=== PATIENT | female | born 1950 | race Hispanic/Latino ===

== ENCOUNTER 2017-06-15 00:01 | Emergency (ER) | payer MEDICARE, MEDICAID, OTHER ==
[2017-06-15 00:13] VITALS: BMI 29.9
--- NOTE | 2017-06-15 00:27 | ED PDOC ---
Arrival/HPI - General Chief Complaint: Weakness/Neurological Deficit Time Seen by Provider: 06/15/17 00:21 Historian: Patient - History of Present Illness Narrative History of Present Illness (Text): 06/15/17 00:26 Madina Kapoor is a 66 year old female, whose past medical history includes hypertension, who presents to the Emergency department complaining of generalized weakness. Patient states she was in a hot room at work yesterday and began feeling weak and near syncopal with palpitations while driving home from work. Patient states today she still feels weak with associated generalized malaise and headache. Patient denies any fever, chills, chest pain, shortness of breath, vomiting, diarrhea, urinary symptoms, back pain, neck pain , dizziness, or any other complaints. PMD: Dr. Alvse Symptom Onset: Gradual Symptom Course: Unchanged Activities at Onset: Light Context: Home Past Medical History - Provider Review Nursing Documentation Reviewed: Yes - Infectious Disease Hx of Infectious Diseases: None - Tetanus Immunization Tetanus Immunization: Unknown - Cardiac Hx Hypertension: Yes - Musculoskeletal/Rheumatological Hx Falls: No - Gastrointestinal Hx Gastrointestinal Disorders: Yes (colitis) Hx Diverticulitis: Yes - Psychiatric Hx Psychophysiologic Disorder: No Hx Anxiety: No Hx Bipolar Disorder: No Hx Depression: No Hx Emotional Abuse: No Hx Hallucinations: No Hx Panic Disorder: No Hx Post Traumatic Stress Disorder: No Hx Psychosis: No Hx Physical Abuse: No Hx Schizophrenia: No Hx Sexual Abuse: No Hx Substance Use: No - Surgical History Hx Hysterectomy: Yes - Anesthesia Hx Anesthesia: No Hx Anesthesia Reactions: No Hx Malignant Hyperthermia: No - Suicidal Assessment Feels Threatened In Home Enviroment: No Family/Social History - Physician Review Nursing Documentation Reviewed: Yes Family/Social History: Unknown Family HX Smoking Status: Never Smoked Hx Alcohol Use: (FORMER) Hx Substance Use: No Hx Substance Use Treatment: No Allergies/Home Meds Allergies/Adverse Reactions: Allergies Sulfa (Sulfonamide Antibiotics) Allergy (Verified 11/30/15 10:49) ANAPHYLAXIS Home Medications: Home Meds Medication Instructions Recorded Confirmed Amlodipine Besylate 5 mg PO DAILY 02/16/12 06/15/17 Review of Systems - Physician Review All systems were reviewed & negative as marked: Yes - Review of Systems Constitutional: Other (+weakness). absent: Fevers Eyes: Normal ENT: Normal Respiratory: Normal. absent: SOB, Cough Cardiovascular: Palpitations, Other (+near-syncopal). absent: Chest Pain Gastrointestinal: Normal. absent: Abdominal Pain, Nausea, Vomiting Genitourinary Female: Normal. absent: Dysuria, Frequency, Hematuria, Urine Output Changes Musculoskeletal: Normal. absent: Back Pain, Neck Pain Skin: Normal. absent: Rash Neurological: Headache. absent: Dizziness Endocrine: Normal Hemo/Lymphatic: Normal Psychiatric: Normal Physical Exam Vital Signs Reviewed: Yes Vital Signs Temp Pulse Resp BP Pulse Ox 06/15/17 00:20 98.2 F 60 16 147/78 96 Temperature: Afebrile Blood Pressure: Normal Pulse: Regular Respiratory Rate: Normal Appearance: Positive for: Well-Appearing, Non-Toxic, Comfortable Pain Distress: None Mental Status: Positive for: Alert and Oriented X 3 - Systems Exam Head: Present: Atraumatic, Normocephalic Pupils: Present: PERRL Extroacular Muscles: Present: EOMI Conjunctiva: Present: Normal Mouth: Present: Moist Mucous Membranes Neck: Present: Normal Range of Motion. No: Meningeal Signs, MIDLINE TENDERNESS , Paraspinal Tenderness Respiratory/Chest: Present: Clear to Auscultation, Good Air Exchange. No: Respiratory Distress, Accessory Muscle Use Cardiovascular: Present: Regular Rate and Rhythm, Normal S1, S2. No: Murmurs Abdomen: Present: Normal Bowel Sounds. No: Tenderness, Distention, Peritoneal Signs Back: Present: Normal Inspection Upper Extremity: Present: Normal Inspection. No: Cyanosis, Edema Lower Extremity: Present: Normal Inspection. No: Edema Neurological: Present: GCS=15, CN II-XII Intact, Speech Normal, Motor Func Grossly Intact, Normal Sensory Function, Normal Cerebellar Funct, Memory Normal Skin: Present: Warm, Dry, Normal Color. No: Rashes Psychiatric: Present: Alert, Oriented x 3, Normal Insight, Normal Concentration Medical Decision Making ED Course and Treatment: 06/15/17 00:26 Impression: 66 year old female complaining of generalized weakness, near-syncope, palpitations, and headache. Plan: -- CT Head w/o contrast -- EKG -- Chest X-ray -- Labs, cardiac enzymes -- Reassess and disposition Prior Visits: Notes and results from previous visits were reviewed. On 11/15/2016, pt was seen in the Emergency department for abdominal cramping, nausea, and diarrhea. Pt was admitted to the hospital for further evaluation. Progress Notes: Reviewed EKG, NSR at [address] bpm[address] Non-specific ST/T wave changes. 06/15/17 01:58 Reviewed radiology, Chest X-ray shows no acute processes. CT Head shows: Brain: Mild atrophy. No intracranial hemorrhage. No mass. No definite edema. Ventricles: No hydrocephalus. Bones/joints: No acute fracture. Soft tissues: Unremarkable. Vasculature: Mild atherosclerotic disease of intracranial arteries. Sinuses: Few sphenoid retention cysts. Mastoid air cells: No mastoid effusion. Orbits: Unremarkable as visualized. IMPRESSION: 1. No acute intracranial abnormality. Acute infarction may be CT occult within first 24 hours. If a focal deficit persists, consider followup CT or MRI for further evaluation. 2. Incidental/non-acute findings are described above. 06/15/17 02:[address] Bill Alves, who is aware and agrees with plan. Accepts pt in to his service. Pt will go to Telemetry observation for near- syncope and palpitations. Requests Dr. Suresh on consult. Pt is no acute distress. Discussed results and hospital observation plan with pt , who is aware and verbalizes understanding. - Lab Interpretations Lab Results: 06/15/17 01:10 06/15/17 00:45 Lab Results 06/15/17 01:10: WBC 7.6 D, RBC 4.47, Hgb 13.6, Hct 39.6, MCV 88.6, MCH 30.4, MCHC 34.3, RDW 13.1, Plt Count 239, MPV 9.8 06/15/17 00:45: Sodium 140, Potassium 4.0, Chloride 106, Carbon Dioxide 25, Anion Gap 13, BUN 24 H, Creatinine 0.8, Est GFR ( Amer) > 60, Est GFR ( Non-Af Amer) > 60, Random Glucose 97, Calcium 9.1, Total Bilirubin 0.4, AST 18, ALT 23, Alkaline Phosphatase 62, Lactate Dehydrogenase 437, Total Creatine Kinase 116, Troponin I < 0.01, Total Protein 6.4, Albumin 3.8, Globulin 2.6, Albumin/Globulin Ratio 1.5 06/15/17 00:45: PT 10.1, INR 0.94, APTT 27.0 I have reviewed the lab results: Yes - RAD Interpretation Radiology Orders: 06/15/17 00:27 HEAD W/O CONTRAST [CT] Stat 06/15/17 00:28 CHEST PORTABLE [RAD] Stat Resident Care Associate: ED Physician, Radiologist - EKG Interpretation Interpreted by ED Physician: Yes Type: 12 lead EKG - Scribe Statement The provider has reviewed the documentation as recorded by the Scribe Alanis Adler Provider Scribe Attestation: All medical record entries made by the Scribe were at my direction and personally dictated by me. I have reviewed the chart and agree that the record accurately reflects my personal performance of the history, physical exam, medical decision making, and the department course for this patient. I have also personally directed, reviewed, and agree with the discharge instructions and disposition. Disposition/Present on Arrival - Present on Arrival Any Indicators Present on Arrival: No History of DVT/PE: No History of Uncontrolled Diabetes: No Urinary Catheter: No History of Decub. Ulcer: No History Surgical Site Infection Following: None - Disposition Have Diagnosis and Disposition been Completed?: Yes Diagnosis: Near syncope, Palpitations Disposition: HOSPITALIZED Disposition Time: 02:03 Patient Plan: Observation Patient Problems: Current Active Problems Problem Status Onset Near syncope Acute Palpitations Acute Condition: STABLE
[2017-06-15 01:04] LABS: HEMATOCRIT 39.6 % (36.0-48.0); MEAN CELL VOLUME 88.6 fl (80.0-105.0); MEAN CORPUSCULAR HEMOGLOBIN 30.4 pg (25.0-35.0); MEAN CORPUSCULAR HGB CONC 34.3 g/dl (31.0-37.0); MEAN PLATELET VOLUME 9.8 fl (7.0-11.0); RED CELL DISTRIBUTION WIDTH 13.1 % (11.5-14.5); WHITE BLOOD COUNT 7.6 10^3/ul (4.5-11.0)
[2017-06-15 01:13] LABS: ALB/GLOB RATIO 1.5 (1.1-1.8); ALKALINE PHOSPHATASE 62 U/L (38-126); ALT/SGPT 23 U/L (7-56); AST/SGOT 18 U/L (14-36); BILIRUBIN,TOTAL 0.4 mg/dL (0.2-1.3); BLOOD UREA NITROGEN 24 mg/dL (7-21); CALCIUM 9.1 mg/dL (8.4-10.5); CARBON DIOXIDE 25 mmol/L (21-33); GFR AFRICAN-AMERICAN > 60; GLUCOSE,RANDOM 97 mg/dL (70-110); TOTAL PROTEIN 6.4 g/dL (5.8-8.3)
[2017-06-15 01:14] LABS: INR 0.94 (0.93-1.08)
[2017-06-15 01:16] LABS: CHLORIDE 106 mmol/L (98-107); SODIUM 140 mmol/L (132-148)
[2017-06-15 01:25] LABS: TROPONIN I < 0.01 ng/mL
--- NOTE | 2017-06-15 01:57 | CT ---
EXAM: CT Head Without Intravenous Contrast CLINICAL HISTORY: 66 years old, female; Signs and symptoms; Syncope and collapse; Additional info: Near syncope TECHNIQUE: Axial computed tomography images of the head/brain without intravenous contrast. All CT scans at this facility use one or more dose reduction techniques, viz.: automated exposure control; ma/kV adjustment per patient size (including targeted exams where dose is matched to indication; i.e. head); or iterative reconstruction technique. COMPARISON: No relevant prior studies available. FINDINGS: Brain: Mild atrophy. No intracranial hemorrhage. No mass. No definite edema. Ventricles: No hydrocephalus. Bones/joints: No acute fracture. Soft tissues: Unremarkable. Vasculature: Mild atherosclerotic disease of intracranial arteries. Sinuses: Few sphenoid retention cysts. Mastoid air cells: No mastoid effusion. Orbits: Unremarkable as visualized. IMPRESSION: 1. No acute intracranial abnormality. Acute infarction may be CT occult within first 24 hours. If a focal deficit persists, consider followup CT or MRI for further evaluation. 2. Incidental/non-acute findings are described above.
[2017-06-15 06:45] VITALS: O2SAT 95
[2017-06-15 08:12] VITALS: RESP 18
--- NOTE | 2017-06-15 08:44 | RAD ---
HISTORY: palpitations COMPARISON: 11/30/2015. FINDINGS: LUNGS: The lungs are well inflated and clear. PLEURA: No significant pleural effusion identified, no pneumothorax apparent. CARDIOVASCULAR: Normal. OSSEOUS STRUCTURES: No significant abnormalities. VISUALIZED UPPER ABDOMEN: Normal. OTHER FINDINGS: None. IMPRESSION: No active pulmonary disease.
--- NOTE | 2017-06-15 09:36 | CARD ---
APPROVED REPORT EKG Measurement Heart [id number] <Conclusion> Suspect arm lead reversal. Normal sinus rhythm
[2017-06-15 11:35] VITALS: BP 152/79; PULSE 58
--- NOTE | 2017-06-15 11:36 | CON ---
DATE: 06/15/2017 INDICATIONS: Near syncope, weakness, palpitations. 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 She felt diaphoretic and despite drinking water, her symptoms worsened. She took a cab home. She continued to feel lightheaded and weak. She came to the emergency room and was admitted. She received IV fluids and this morning she feels much better. There was no chest pain. There was palpitation. There was no orthopnea, PND, syncope, fall, injury, edema, claudication, fever, chills, cough, sputum production, hemoptysis, abdominal pain, nausea, vomiting, diarrhea, constipation, or melena. PAST MEDICAL HISTORY: Notable for hypertension. There is no history of rheumatic fever, myocardial infarction, angina, congestive heart failure, diabetes, stroke, TIA, or gout. MEDICATIONS AT THE TIME OF ADMISSION: Amlodipine. ALLERGIES: SULFA MEDICATIONS. SOCIAL HISTORY: She lives at home. She is employed. She is ambulatory. She never smoked. She does not drink alcohol significantly. REVIEW OF SYSTEMS: 10-point review of systems is otherwise unremarkable except as noted above. PHYSICAL EXAMINATION: GENERAL: She is a well-developed woman, in no acute distress. VITAL SIGNS: Notable for sinus rhythm 56 beats per minute, blood pressure 154/88, respirations 18 to 25, and O2 sat 95-96% on room air. HEENT: Exam reveals no neck vein distention, thyromegaly, or carotid bruits. Mucous membranes are moist. Conjunctivae are pink. NECK: Supple. RESPIRATORY: Lung griffin clear throughout. CARDIOVASCULAR: Examination of the heart reveals normal first and second heart sounds. ABDOMEN: Soft. Bowel sounds present. No mass, organomegaly, tenderness, rebound, or guarding. No CVA tenderness. No palpable abdominal aortic aneurysm. EXTREMITIES: Exam revealed no cyanosis, clubbing, or edema. NEUROLOGIC: She was awake, alert, and oriented. PSYCHIATRIC: Normal as to mood and affect. SKIN: Warm and dry. No rash or cellulitis. LABORATORY AND IMAGING: A portable chest x-ray revealed no active disease. A CT scan of the head is noted. No evidence of acute stroke. EKG demonstrates sinus rhythm. T-here is a limb lead reversal. No acute ST changes are noted. CBC is unremarkable. PT, INR, PTT unremarkable. Comprehensive metabolic panel unremarkable. CK 116, troponin less than 0.01. IMPRESSION AND PLAN: The patient is a 66-year-old woman who was exposed to extreme heat in workplace yesterday and developed diaphoresis, weakness, and near-syncope with palpitations but no chest pain. Symptoms have resolved with an overnight stay in the emergency room, IV fluids and blood tests are unremarkable. There is no evidence of arrhythmia or acute myocardial infarction. Her initial EKG was benign, but there is limb lead reversal. I will repeat the EKG this morning. I will check her for postural signs. I will review her old records. She will report additional symptoms if they occur. She will avoid heat exposure and keep well hydrated. She is reluctant to have a stress test, but I will review her records to see if one is advisable and I will discuss it further with you on an outpatient basis. Evan Hudson MD MTDD
[2017-06-15 11:40] VITALS: TEMP 98.1
--- NOTE | 2017-06-15 12:32 | CON ---
Went to see the patient who was admitted with near syncope. The patient said that recently she started seeing Dr. Hudson, used to see before Dr. Suresh, but now recently, she saw Dr. Hudson, couple of months and an echo and a stress test are scheduled with him, so we will sign off consult for her and we will put Dr. Hudson for the consult. We ordered blood test earlier, we will cancel and echo will be canceled and further recommendation as per Dr. Hudson. Josesito Gayle MD
--- NOTE | 2017-06-15 14:33 | CARD ---
APPROVED REPORT EKG Measurement Heart [id number] <Conclusion> Sinus bradycardia Leftward axis NSSTW changes
--- NOTE | 2017-06-16 10:55 | HP ---
One-day admitting history and physical and discharge for one-day stay. CHIEF COMPLAINT: Generalized weakness, diaphoresis, and fatigue. 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 She was later transferred to another room, which also had no air conditioning. She day, she was very hot, quite diaphoretic, and became increasingly weak. When she went home, she tried to cool off, but remained lightheaded, dizzy, felt her heart racing and so came to the emergency room. In the ER, she was afebrile, not tachycardic, but her BUN was elevated. She was clinically dry and show signs of heat exhaustion. She was given IV fluids with great deal of her reflux symptoms and admitted to the monitor for several hours overnight. PAST MEDICAL HISTORY: Significant for hypertension. Negative for diabetes, tuberculosis, asthma, or seizures. She denies any prior surgeries. She was hospitalized once earlier in this year for dehydration related to gastroenteritis and diarrhea. SOCIAL HISTORY: She does not smoke or drink alcohol. REVIEW OF SYSTEMS: Otherwise unremarkable. 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 Her son is handicapped as well and she cares for him. Review of systems is otherwise unremarkable. PHYSICAL EXAMINATION: GENERAL: The patient was seen in the emergency room slot #18 this Wednesday at near the noon hour. She was sitting up in a stretcher eating lunch, awake, alert, clear and appropriate, actually looking forward to discharged to home. HEENT: Head and neck are unremarkable. Conjunctivae are pink. Mucous membranes are moist. NECK: Supple without masses. Thyroid is not palpable. There is no JVD. No carotid bruits. LUNGS: Clear with good aeration. HEART: Regular and not tachycardic. ABDOMEN: Soft. Bowel sounds are present. Nontender. EXTREMITIES: Showed no edema. Good DP and PT pulses were noted. IMPRESSION: 1. Heat exhaustion with elevated BUN. 2. History of hypertension. PLAN: The patient has already received overnight fluids and adequate hydration. She is eating well, awake, alert, clear, no longer dizzy, vital signs are stable, and therefore ready to be discharged to home. Unfortunately, urinalysis was not done, but she reports dark concentrated urine. I advised her to continue to encourage IV fluids, follow up in the office in few days and I expect she will be ready to return to work soon thereafter. Charly Alves MD
== END 2017-06-15 15:30 | disposition short-term general hospital (02) ==
LOC: ED 00:01 → UNDOADMOB 02:03 → ERH 02:03 → ED 15:30
DX: R55 Syncope and collapse (principal); R00.2 Palpitations; I10 Essential (primary) hypertension

== ENCOUNTER 2018-07-25 07:01 | Day surgery (SDC) | payer MEDICARE ==
[2018-07-25] MEDS ORDERED: Midazolam 2 MG/2 ML VIAL ONE (09:20)
[2018-07-25] MEDS ORDERED: Propofol 10 mg/ml Inj (20 ML) ONE ×2 (09:20→09:52)
[2018-07-25] MEDS ORDERED: Sodium Chloride 0.9% 1,000 ML IV SCH (10:30)
[2018-07-25 11:00] VITALS: PULSE 52
[2018-07-25 11:03] VITALS: BP 127/75; RESP 17; TEMP 97.6; O2SAT 99
== END 2018-07-25 12:09 | disposition home or self-care (01) ==
LOC: ENDO 07:01
PROVIDERS: ATTEND Internal Medicine Gastroenterology
DX: D3A.8 Other benign neuroendocrine tumors (principal); D12.0 Benign neoplasm of cecum; D12.5 Benign neoplasm of sigmoid colon; K62.1 Rectal polyp; K57.30 Diverticulosis of large intestine without perforation or abscess without bleeding; D13.39 Benign neoplasm of other parts of small intestine; K64.8 Other hemorrhoids; R19.4 Change in bowel habit; I10 Essential (primary) hypertension
CPT/HCPCS: 45380; 45385; 88305; J2001; J2250; J2704; J7030; J7040

== ENCOUNTER 2018-08-22 08:50 | Emergency (ER) | payer MEDICARE ==
[2018-08-22 08:52] VITALS: BMI 29.8
[2018-08-22 08:58] VITALS: TEMP 98; O2SAT 96
[2018-08-22] MEDS ORDERED: Iohexol 240 (50 ml) ONE (09:44)
[2018-08-22 10:15] LABS: BASO # 0.02 K/mm3 (0.0-2.0); BASO % 0.2 % (0.0-3.0); EOS # 0.2 (0.0-0.7); EOS % 2.4 % (1.5-5.0); GRAN % 67.9 % (50.0-68.0); HEMOGLOBIN 15.2 g/dL (12.0-16.0); LYMPH % 22.4 % (22.0-35.0); MEAN CELL VOLUME 88.9 fl (80.0-105.0); MEAN CORPUSCULAR HEMOGLOBIN 30.6 pg (25.0-35.0); MEAN CORPUSCULAR HGB CONC 34.4 g/dl (31.0-37.0); MEAN PLATELET VOLUME 9.5 fl (7.0-11.0); MONO # 0.6 (0.1-0.6); MONO % 7.1 % (1.0-6.0); RBC 4.97 10^6/uL (3.5-6.1); RED CELL DISTRIBUTION WIDTH 13.2 % (11.5-14.5); URINE APPEARANCE SL CLOUDY (CLEAR); URINE BILIRUBIN SMALL (NEGATIVE); URINE BLOOD TRACE-INTACT (NEGATIVE); URINE COLOR YELLOW (YELLOW); URINE GLUCOSE (UA) NEGATIVE (NEGATIVE); URINE LEUKOCYTE ESTERASE SMALL Leu/uL (NEGATIVE); URINE PROTEIN 30 mg/dL (<30 mg/dL); URINE UROBILINOGEN 0.2 E.U./dL (<1 E.U./dL); WHITE BLOOD COUNT 8.8 10^3/uL (4.5-11.0)
--- NOTE | 2018-08-22 10:19 | RAD ---
Date of service: 08/22/2018 HISTORY: abd pain COMPARISON: 06/15/2017 FINDINGS: LUNGS: No active pulmonary disease. PLEURA: No significant pleural effusion identified, no pneumothorax apparent. CARDIOVASCULAR: No aortic atherosclerotic calcification present. Normal cardiac size. No pulmonary vascular congestion. OSSEOUS STRUCTURES: No significant abnormalities. VISUALIZED UPPER ABDOMEN: Normal. OTHER FINDINGS: None. IMPRESSION: No active disease.
[2018-08-22 10:24] LABS: ALB/GLOB RATIO 1.2 (1.1-1.8); ALBUMIN 4.5 g/dL (3.0-4.8); ALT/SGPT 22 U/L (7-56); AST/SGOT 21 U/L (14-36); BLOOD UREA NITROGEN 12 mg/dL (7-21); CALCIUM 9.4 mg/dL (8.4-10.5); GFR NON-AFRICAN AMERICAN > 60; LIPASE 30 U/L (23-300)
[2018-08-22 10:28] LABS: URINE BACTERIA SMALL (NEG); URINE RBC 0 - 2 /hpf (0-2)
--- NOTE | 2018-08-22 10:45 | ED PDOC ---
Arrival/HPI - General Chief Complaint: Abdominal Pain Time Seen by Provider: 08/22/18 09:13 Historian: Patient - History of Present Illness Narrative History of Present Illness (Text): 08/22/18 10:42 60-year-old female presents today with a 2 day history of lower abdominal cramping pain. Patient denies nausea vomiting diarrhea or constipation. She denies fevers or chills. She is complaining of dark-colored urine but denies dys uria or urinary frequency. She is complaining of slight right-sided flank pain. No medications have been taken for pain at home. His no chest pain or shortness of breath. Patient denies dizziness or weakness. Patient was seen by her GI doctor today and was advised to come to the emergency room for evaluation as the patient has a history of diverticulitis. Severity Level: Mild Past Medical History - Provider Review Nursing Documentation Reviewed: Yes - Travel History Have you recently traveled outside [place] w/in the past 3 mons?: No - Infectious Disease Hx of Infectious Diseases: None - Tetanus Immunization Tetanus Immunization: Unknown - Cardiac Hx Hypertension: Yes Hx Pacemaker: No - Pulmonary Hx Respiratory Disorders: No - Neurological Hx Neurological Disorder: No Hx Paralysis: No - HEENT Hx HEENT Disorder: No - Renal Hx Renal Disorder: No - Endocrine/Metabolic Hx Endocrine Disorders: No - Hematological/Oncological Hx Blood Disorders: No Hx Blood Transfusions: No Hx Blood Transfusion Reaction: No - Integumentary Hx Dermatological Disorder: No - Musculoskeletal/Rheumatological Hx Musculoskeletal Disorders: No - Gastrointestinal Hx Gastrointestinal Disorders: Yes (colitis) Hx Diverticulitis: Yes - Genitourinary/Gynecological Hx Genitourinary Disorders: No - Psychiatric Hx Psychophysiologic Disorder: No Hx Emotional Abuse: No Hx Physical Abuse: No Hx Substance Use: No - Surgical History Hx Hysterectomy: Yes - Anesthesia Hx Anesthesia: Yes Hx Anesthesia Reactions: No (NAUSEA) Hx Malignant Hyperthermia: No - Suicidal Assessment Feels Threatened In Home Enviroment: No Family/Social History - Physician Review Nursing Documentation Reviewed: Yes Family/Social History: Unknown Family HX Smoking Status: Never Smoked Hx Alcohol Use: Yes ( ON OCCASION) Hx Substance Use: No Hx Substance Use Treatment: No Allergies/Home Meds Allergies/Adverse Reactions: Allergies metronidazole Allergy (Verified 08/22/18 08:52) BECAME TOXIC Sulfa (Sulfonamide Antibiotics) Allergy (Verified 08/22/18 08:52) ANAPHYLAXIS Home Medications: Home Meds Medication Instructions Recorded Confirmed amLODIPine [Norvasc] 5 mg PO DAILY 09/27/17 08/22/18 Ergocalciferol (Vitamin D2) 50,000 unit PO Q7D 07/20/18 08/22/18 [Vitamin D2] Calcium Carbonate [Calcium] 500 mg PO DAILY 07/25/18 08/22/18 Review of Systems - Review of Systems Constitutional: absent: Fatigue, Fevers Respiratory: absent: SOB, Cough Cardiovascular: absent: Chest Pain, Palpitations Gastrointestinal: Abdominal Pain. absent: Constipation, Diarrhea, Nausea, Vomiting Genitourinary Female: absent: Dysuria, Frequency, Hematuria Musculoskeletal: Back Pain. absent: Arthralgias, Neck Pain Skin: absent: Rash, Pruritis Neurological: absent: Headache, Dizziness Endocrine: absent: Diaphoresis Psychiatric: absent: Anxiety, Depression Physical Exam Vital Signs Reviewed: Yes Vital Signs Temp Pulse Resp BP Pulse Ox 08/22/18 08:56 98 F 64 16 134/90 96 Temperature: Afebrile Blood Pressure: Normal Pulse: Regular Respiratory Rate: Normal Appearance: Positive for: Well-Appearing, Non-Toxic, Comfortable Pain Distress: None Mental Status: Positive for: Alert and Oriented X 3 - Systems Exam Head: Present: Atraumatic Mouth: Present: Moist Mucous Membranes Neck: Present: Normal Range of Motion Respiratory/Chest: Present: Clear to Auscultation Cardiovascular: Present: Regular Rate and Rhythm, Normal S1, S2. No: Murmurs Abdomen: No: Tenderness, Distention, Peritoneal Signs Medical Decision Making ED Course and Treatment: 08/22/18 13:20 Patient is nontoxic well appearing with stable vital signs presenting with lower abdominal pain. CBC wnl CMP wnl Lipase wnl Urinalysis + leukocytes CAT scan: FINDINGS: LOWER THORAX: Unremarkable. LIVER: Unremarkable. No gross lesion or ductal dilatation. GALLBLADDER AND BILE DUCTS: Unremarkable. PANCREAS: Unremarkable. No gross lesion or ductal dilatation. SPLEEN: Small cysts are seen in the spleen. These are unchanged ADRENALS: Unremarkable. No mass. KIDNEYS AND URETERS: Unremarkable. No hydronephrosis. No solid mass. VASCULATURE: Unremarkable. No aortic aneurysm. No aortic atherosclerotic calcification or mu ral plaque present. BOWEL: Minimal inflammatory changes are seen adjacent to the sigmoid colon consistent with mild early diverticulitis. Multiple diverticula are seen. APPENDIX: Normal appendix. PERITONEUM: Unremarkable. No free fluid. No free air. LYMPH NODES: Unremarkable. No enlarged lymph nodes. BLADDER: Unremarkable. REPRODUCTIVE: Hysterectomy BONES: Degenerative changes in the lower lumbar spine OTHER FINDINGS: None. IMPRESSION: Minimal inflammatory changes are seen adjacent to the sigmoid colon consistent with mild early diverticulitis. Multiple diverticula are seen. Patient reassessment: pt non toxic well appearing; no distress. case discussed with dr. Denise; will d/c home on augmentin. pt to f/u with GI, surgery and PMD. pt states she was told by dr. denise that there was a lesion on her Colonscopy that wasnt seen on todays cat scan. pt was advised of possible cancerous lesion. pt was advised to f/u with surgeon for further evaluation. pt verbalized understanding of possible cancerous lesion and need for immediate follow up. pt also was advised to return immediately if symptoms, worsen,persist or if new symptoms develop. Discussed all results with patient in depth all aspects of this case were discussed the attending of record. Impression: diverticulitis Motrin every 6 hours as needed for pain Augmentin; 1 tablet twice daily x 10 days Follow up with primary care physician within the next 2 days Follow up with the GI specialist within the next 2 days. Return immediately if symptoms worsen persist or if new symptoms develop: High fevers, increasing pain, vomiting, diarrhea or any other concerning symptoms develop - Lab Interpretations Lab Results: 08/22/18 09:54 08/22/18 09:54 Lab Results 08/22/18 09:54: WBC 8.8, RBC 4.97, Hgb 15.2, Hct 44.2, MCV 88.9, MCH 30.6, MCHC 34.4, RDW 13.2, Plt Count 267, MPV 9.5, Gran % 67.9, Lymph % (Auto) 22.4, [place] % (Auto) 7.1 H, Eos % (Auto) 2.4, Baso % (Auto) 0.2, Gran # 6.00, Lymph # (Auto) 2.0, [place] # (Auto) 0.6, Eos # (Auto) 0.2, Baso # (Auto) 0.02 08/22/18 09:54: Sodium 141, Potassium 3.9, Chloride 103, Carbon Dioxide 27, Anion Gap 15, BUN 12, Creatinine 0.8, Est GFR ( Amer) > 60, Est GFR (Non- Af Amer) > 60, Random Glucose 96, Calcium 9.4, Total Bilirubin 0.8, AST 21, ALT 22, Alkaline Phosphatase 92, Total Protein 8.2, Albumin 4.5, Globulin 3.7, Albumin/Globulin Ratio 1.2, Lipase 30 08/22/18 09:54: Urine Color Yellow, Urine Appearance Sl cloudy, Urine pH 6.0, Ur Specific [place] 1.025, Urine Protein 30 H, Urine Glucose (UA) Negative, Urine Ketones Trace H, Urine Blood Trace-intact H, Urine Nitrate Negative, Urine Bilirubin Small H, Urine Urobilinogen 0.2, Ur Leukocyte Esterase Small H, Urine RBC 0 - 2, Urine WBC 2 - 5, Ur Epithelial Cells 1 - 3, Urine Bacteria Small - RAD Interpretation Radiology Orders: 08/22/18 09:38 ABD PELVIS PO & IV CONTRAST [CT] Stat 08/22/18 09:39 CHEST PORTABLE [RAD] Stat Disposition/Present on Arrival - Present on Arrival Any Indicators Present on Arrival: No History of DVT/PE: No History of Uncontrolled Diabetes: No Urinary Catheter: No History of Decub. Ulcer: No History Surgical Site Infection Following: None - Disposition Have Diagnosis and Disposition been Completed?: Yes Diagnosis: Diverticulitis Disposition: HOME/ ROUTINE Disposition Time: 13:00 Patient Plan: Discharge Patient Problems: Current Active Problems Problem Status Onset Diverticulitis Acute Condition: GOOD Discharge Instructions (ExitCare): Diverticulitis (DC) Additional Instructions: Motrin every 6 hours as needed for pain Augmentin; 1 tablet twice daily x 10 days Follow up with primary care physician within the next 2 days Follow up with the GI specialist within the next 2 days. Return immediately if symptoms worsen persist or if new symptoms develop: High fevers, increasing pain, vomiting, diarrhea or any other concerning symptoms develop Prescriptions: Amoxicillin/Clavulanate [Augmentin 875 MG-125 MG] 1 tab PO BID #20 tab Referrals: Seth Carrasquillo MD [Family Provider] - Follow up with primary Mikaela Denise MD [Medical Doctor] - Follow up with primary Forms: [facility] ([place]), WORK NOTE
[2018-08-22 11:03] VITALS: RESP 18
[2018-08-22] MEDS ORDERED: Iohexol 350 MG/100 ML VIAL ONE (11:10)
[2018-08-22 12:29] VITALS: BP 130/74; PULSE 65
--- NOTE | 2018-08-22 12:54 | CT ---
Date of service: 08/22/2018 PROCEDURE: CT Abdomen and Pelvis with contrast HISTORY: lower abdominal pain COMPARISON: 07/05/2015 TECHNIQUE: Contrast dose: 100 cc of Omni 350 Radiation dose: Total exam DLP = 895.28 mGy-cm. This CT exam was performed using one or more of the following dose reduction techniques: Automated exposure control, adjustment of the mA and/or kV according to patient size, and/or use of iterative reconstruction technique. FINDINGS: LOWER THORAX: Unremarkable. LIVER: Unremarkable. No gross lesion or ductal dilatation. GALLBLADDER AND BILE DUCTS: Unremarkable. PANCREAS: Unremarkable. No gross lesion or ductal dilatation. SPLEEN: Small cysts are seen in the spleen. These are unchanged ADRENALS: Unremarkable. No mass. KIDNEYS AND URETERS: Unremarkable. No hydronephrosis. No solid mass. VASCULATURE: Unremarkable. No aortic aneurysm. No aortic atherosclerotic calcification or mural plaque present. BOWEL: Minimal inflammatory changes are seen adjacent to the sigmoid colon consistent with mild early diverticulitis. Multiple diverticula are seen. APPENDIX: Normal appendix. PERITONEUM: Unremarkable. No free fluid. No free air. LYMPH NODES: Unremarkable. No enlarged lymph nodes. BLADDER: Unremarkable. REPRODUCTIVE: Hysterectomy BONES: Degenerative changes in the lower lumbar spine OTHER FINDINGS: None. IMPRESSION: Minimal inflammatory changes are seen adjacent to the sigmoid colon consistent with mild early diverticulitis. Multiple diverticula are seen.
[2018-08-22] MEDS ORDERED: Amoxicillin-Clav 875-125 mg Tab PO STA (13:37)
== END 2018-08-22 14:05 | disposition home or self-care (01) ==
LOC: ED 08:50
DX: K57.92 Diverticulitis of intestine, part unspecified, without perforation or abscess without bleeding (principal); I10 Essential (primary) hypertension
CPT/HCPCS: 71045; 74177; 80053; 81001; 83690; 85025; 87086; 99285; Q9966; Q9967

== ENCOUNTER 2018-10-18 08:10 | Outpatient (CLI) | payer MEDICARE | END 2018-10-18 08:11 | disposition home or self-care (01) | LOC: PAT 08:10 ==

== ENCOUNTER 2018-10-31 09:27 | Inpatient (IN) | payer MEDICARE, OTHER ==
[2018-10-18 10:09] VITALS: BMI 30.7
[2018-10-31] MEDS ORDERED: metroNIDAZOLE IV 500 mg/100 ml 0 MG/0 ML BAG ONE (12:24)
[2018-10-31] MEDS ORDERED: Bupivacaine 0.5% 50 ML IJ ONE (12:24)
[2018-10-31] MEDS ORDERED: cefTRIAXone (Rocephin) 1 gm Inj ONE (12:24)
[2018-10-31] MEDS ORDERED: Sodium Chloride 0.9% 10 ML IV ONE (12:25)
[2018-10-31] MEDS ORDERED: Propofol 10 mg/ml Inj (20 ML) ONE (12:35)
[2018-10-31] MEDS ORDERED: Midazolam 2 MG/2 ML VIAL ONE (12:35)
[2018-10-31] MEDS ORDERED: Rocuronium 10 mg/ml (5 ml) ONE ×2 (12:37→14:18)
[2018-10-31] MEDS ORDERED: Glycopyrrolate 0.2 mg/ml (2ml vial) ONE ×2 (14:43→14:45)
[2018-10-31] MEDS ORDERED: HYDROmorphone 0.5 mg/0.5 ml ISec IVP PRN (15:03)
--- NOTE | 2018-10-31 15:30 | PCM.SURG1 ---
Surgeon's Initial Post Op Note - Surgeon's Notes Surgeon: Dr. Rojo Cooker Sulfate: Franko Cary MS3 Type of Anesthesia: General Endo Anesthesia Administered By: Dr. Carbajal Pre-Operative Diagnosis: Cecal Carcinoid Operative Findings: See operative dictation Post-Operative Diagnosis: Same Operation Performed: Laparoscopic right hemicolectomy with primary side to side anastamoses Specimen/Specimens Removed: Right colon Estimated Blood Loss: EBL {In ML}: 20 Blood Products Given: N/A Drains Used: No Drains Post-Op Condition: Good Date of Surgery/Procedure: 10/31/18 Time of Surgery/Procedure: 15:28
[2018-10-31] MEDS ORDERED: Oxycodone/Acetaminophen 5/325 mg Tab PO PRN (15:40)
[2018-10-31] MEDS: HYDROmorphone 0.5 mg/0.5 ml ISec IVP PRN (17:12)
[2018-10-31] MEDS: Lactated Ringer's 1,000 ML IV SCH (17:17)
[2018-10-31] MEDS ORDERED: Pneumococcal 23-Valent Vaccine IM ONE (20:09)
[2018-10-31] MEDS: Benzocaine/Menthol (Cepacol) Lozenge MT PRN (21:36)
[2018-11-01] MEDS: HYDROmorphone 0.5 mg/0.5 ml ISec IVP PRN ×4 (00:53→23:55)
[2018-11-01] MEDS: Lactated Ringer's 1,000 ML IV SCH ×4 (01:00→20:36)
[2018-11-01 07:02] LABS: HEMOGLOBIN 12.9 g/dL (12.0-16.0); MEAN CELL VOLUME 91.3 fl (80.0-105.0); MEAN CORPUSCULAR HEMOGLOBIN 29.6 pg (25.0-35.0); MEAN CORPUSCULAR HGB CONC 32.4 g/dl (31.0-37.0); MEAN PLATELET VOLUME 9.9 fl (7.0-11.0); RBC 4.36 10^6/uL (3.5-6.1); RED CELL DISTRIBUTION WIDTH 13.3 % (11.5-14.5); WHITE BLOOD COUNT 10.7 10^3/uL (4.5-11.0)
[2018-11-01 07:12] LABS: ALB/GLOB RATIO 1.2 (1.1-1.8); ALBUMIN 3.8 g/dL (3.0-4.8); ALT/SGPT 23 U/L (7-56); AST/SGOT 20 U/L (14-36); BLOOD UREA NITROGEN 11 mg/dL (7-21); CALCIUM 8.6 mg/dL (8.4-10.5); GFR NON-AFRICAN AMERICAN > 60
--- NOTE | 2018-11-01 09:04 | CP.PCM.PN ---
Subjective - Date & Time of Evaluation Date of Evaluation: 11/01/18 Time of Evaluation: 09:01 - Subjective Subjective: Surgery Progress Note for Dr. Ewing S/E at bedside. Complained of soreness in right lower quadrant at site of hemicolectomy Pending bowel movement Objective - Vital Signs/Intake and Output Vital Signs (last 24 hours): Temp Pulse Resp BP Pulse Ox 99.2 F 68 20 118/69 96 11/01/18 06:49 11/01/18 06:49 11/01/18 06:49 11/01/18 06:49 11/01/18 06:49 - Medications Medications: Current Medications Amlodipine Besylate (Norvasc) 5 mg PO QAM [facility] Benzocaine/Menthol (Cepacol Sore Throat) 1 emilie MT Q4H PRN PRN Reason: Sore Throat Last Admin: 10/31/18 21:36 Dose: 1 emilie Hydromorphone HCl (Dilaudid) 0.5 mg IVP Q4H PRN PRN Reason: Pain, moderate (4-7) Last Admin: 11/01/18 05:29 Dose: 0.5 mg Lactated Ringer's (Lactated Ringer's) 1,000 mls @ 120 mls/hr IV .Q8H20M [facility] Last Admin: 11/01/18 01:02 Dose: 120 mls/hr - Labs Labs: 11/01/18 06:45 11/01/18 06:45 - Constitutional Appears: Non-toxic, No Acute Distress - Head Exam Head Exam: NORMAL INSPECTION, NORMOCEPHALIC - Eye Exam Eye Exam: EOMI, Normal appearance. absent: Nystagmus, Scleral icterus - ENT Exam ENT Exam: Mucous Membranes Moist - Respiratory Exam Respiratory Exam: Clear to Ausculation Bilateral, NORMAL BREATHING PATTERN. abs ent: Rales, Rhonchi, Wheezes - Cardiovascular Exam Cardiovascular Exam: REGULAR RHYTHM, +S1, +S2. absent: Tachycardia - GI/Abdominal Exam GI & Abdominal Exam: Soft, Normal Bowel Sounds. absent: Distended, Firm, Guarding, Rigid Additional comments: umbilical region incision noted, well healing with glue left lower quadrant incision noted, well healing, no oozing, erythema, or drainage noted Assessment and Plan - Assessment and Plan (Free Text) Assessment: Patient is a 68 y.po male w/ PMH of HTN and HLD admitted for laparoscopic right hemicolectomy with primary side to side anastamoses. POD 1 PLAN: Encourage incentive spiromtry use Anti-embolic stockings OOB to chair, activity as tolerated; PT eval pending Monitor urine output s/p bianchi removal; monitor bowel function CLD, ADAT Possible D/C in AM if patient tolerates feeds and has bowel movement
[2018-11-01] MEDS: Benzocaine/Menthol (Cepacol) Lozenge MT PRN (09:50)
[2018-11-02] MEDS: Lactated Ringer's 1,000 ML IV SCH ×3 (03:41→12:52)
--- NOTE | 2018-11-02 03:57 | OP ---
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 POSTOPERATIVE DIAGNOSIS: Carcinoid tumor of the terminal ileum. PROCEDURE PERFORMED: Laparoscopic right hemicolectomy. SURGEON: Jaziel Rojo MD MANPOWER DEVELOPMENT ADVISOR: Sree Gray DO ANESTHESIOLOGIST: Dr. Carbajal. TYPE OF ANESTHESIA: General endotracheal anesthesia. ESTIMATED BLOOD LOSS: Minimal. SPECIMEN: Right colon with terminal ileum with mesentery. INDICATIONS: The patient is a 68-year-old female with findings of carcinoid tumor, terminal ileum. The patient had a workup, looking for additional lesions which were not present and was scheduled for right hemicolectomy. DESCRIPTION OF PROCEDURE: The patient was brought to the operating room, placed on the operating room table in supine position. The patient was connected to EKG, blood pressure, and pulse oximetry monitors. The patient then underwent general endotracheal anesthesia and was prepped and draped in the usual sterile fashion. First, a standard time-out procedure took place, when everybody in the room agreed as to the patient's diagnosis, procedure to be performed, and identity. First a local anesthetic was used in order to anesthetize the area, just adjacent to the umbilicus for placement of the 10 mm trocar. We then infiltrated two other areas one below the umbilicus and one above the umbilicus lateral to the left rectus muscle edge. Once those were marked, I then proceeded with making incision and placing the 10 mm trocar inside the abdominal cavity after pneumoperitoneum was obtained with Veress needle. Careful evaluation of the abdominal cavity revealed presence of small bowel throughout the entire abdomen, few adhesions of the omentum to the right colon as well as the colon. We then placed two 5 mm trocars in the lateral border of the left rectus muscle and proceeded with careful mobilization. The patient was placed in Trendelenburg position and tilted to the left. It allowed me to move the small bowel away from the root of the right colon mesentery and the area of the ileocecal valve was carefully evaluated. There was no evidence of any growth in the area. I then proceeded with taking down few omental adhesions using the harmonic scalpel and pushed the omentum up and above the transverse colon. In this way, the area of the ileocolic artery was exposed which was then pulled laterally in order to raise it up. The origin of the ileocolic artery was identified, just below the edge of the duodenum and the fat was scored and cleaned off the artery and vein. Both structures were carefully dissected out and freed up from the surrounding tissue and clipped both proximally and distally and transected using Harmonic scalpel. Once the artery and vein were detached, the adjacent fat is also cauterized with Harmonic scalpel. I then proceeded with raising the right colon omentum carefully by getting into the appropriate plain and from the underlying structures. Careful dissection was done in order to mobilize the mesentery device; all the way down to the peritoneal border on the other side of the colon. On the way, it was noted that traversing ureter with adjacent structures and kept it away from the field of dissection. The mesentery of the terminal ileum was also mobilized partially and then the proximal portion of the transverse colon of the mesentery was also mobilized off the duodenum. Once this was done, we then proceeded with mobilizing the proximal transverse colon by transecting the hepatocolic ligament and freed up the ascending colon by detaching it from the lateral abdominal wall. In this fashion, we were able to fully mobilize the terminal ileum, right colon, and proximal transverse colon. Mesentery of the transverse colon was carefully cleaned up all the way down to the wall and noted to be able to proceed with the anastomosis after the specimen was extracted. We then proceeded with making a small incision about 6 cm underlying port placement into the periumbilical area in a vertical fashion, and the incision was then covered and , and the specimen was carefully brought out by the cecum to the outside. The previously marked colon and the terminal ileum were approximated to each other and 3-0 silk stitch was employed to touch them in an appropriate place and about 15 cm of terminal ileum were then transected using a BECKIE stapler and so was the transverse colon in the proximal portion. The specimen was then moved to the side table and anastomosis in the transverse colon and terminal ileum was created using BECKIE and TA staplers. Once this was located, a stitch was placed in the crotch of the anastomosis of 3-0 silk. There was no bleeding noted. The bowel was viable and it was placed back in the abdominal cavity. Once this was done, we then proceeded with closure of small midline incision using #1 PDS in a running fashion. Once this was closed and subcutaneous tissues were closed, after the wound was copiously irrigated, we then placed a pneumoperitoneum back in and looked with 5-mm scope through the 5-mm ports. Careful evaluation of the abdominal cavity revealed no evidence of bleeding. The bowel was positioned appropriately. There was no evidence of any twisting. The omentum was placed back on top of the anastomoses, and at this point, the ports were checked for bleeding. There was no evidence of any bleeding from port sites and the ports were removed after pneumoperitoneum was released, and the wounds were closed using 3-0 Vicryl for the subcutaneous tissue and 4-0 Monocryl for skin. Sterile Dermabond dressing was applied to all the wounds. The patient tolerated the procedure well and there were no complications. The patient was then awakened and transferred to the recovery room for further observation. Jaziel Rojo MD
--- NOTE | 2018-11-02 13:28 | CP.PCM.PN ---
Subjective - Date & Time of Evaluation Date of Evaluation: 11/02/18 Time of Evaluation: 10:00 - Subjective Subjective: General Surgery Progress Note for Dr. Rojo This 68F was seen and examined this Am at bedside she reports that her pain is improving. She tolerated liquids however she reports diarrhea. She denies chest pain or SOB or any new or concerning symptoms. Incisions are well approximated non tender non erythematous. She is requesting a regular diet. Objective - Vital Signs/Intake and Output Vital Signs (last 24 hours): Temp Pulse Resp BP Pulse Ox 97.4 F L 68 18 153/83 H 95 11/02/18 06:00 11/02/18 09:44 11/02/18 06:00 11/02/18 09:44 11/02/18 06:00 Intake and Output: 11/02/18 11/02/18 06:59 18:59 Intake Total 2380 240 Output Total 2 Balance 2378 240 - Medications Medications: Current Medications Acetaminophen (Tylenol 325mg Tab) 650 mg PO Q6H PRN PRN Reason: Fever >100.4 F Amlodipine Besylate (Norvasc) 5 mg PO QAM [facility] Last Admin: 11/02/18 09:44 Dose: 5 mg Benzocaine/Menthol (Cepacol Sore Throat) 1 emilie MT Q4H PRN PRN Reason: Sore Throat Last Admin: 11/01/18 09:50 Dose: 1 emilie Lactated Ringer's (Lactated Ringer's) 1,000 mls @ 120 mls/hr IV .Q8H20M [facility] Last Admin: 11/02/18 12:52 Dose: 120 mls/hr Ketorolac Tromethamine (Toradol) 15 mg IVP Q6 [facility] - Labs Labs: 11/01/18 06:45 11/01/18 06:45 - Constitutional Appears: Non-toxic, No Acute Distress - Head Exam Head Exam: ATRAUMATIC, NORMOCEPHALIC - Eye Exam Eye Exam: EOMI - ENT Exam ENT Exam: Mucous Membranes Moist - Respiratory Exam Respiratory Exam: NORMAL BREATHING PATTERN - Cardiovascular Exam Cardiovascular Exam: +S1, +S2 - GI/Abdominal Exam GI & Abdominal Exam: Soft. absent: Distended, Guarding, Rigid, Tenderness - Neurological Exam Neurological Exam: Alert, Awake - Psychiatric Exam Psychiatric exam: Normal Affect, Normal Mood - Skin Skin Exam: Dry, Intact Assessment and Plan - Assessment and Plan (Free Text) Assessment: This is a 68F with HTN and HLD POD#2 s/p laparoscopic right hemicolectomy with primary side to side anastamoses for carcinoid. PLAN: Encourage incentive spiromtry use Lovenox Ambulate monitor bowel function Regular diet Possible D/C in AM if patient tolerates feeds and has bowel movement Further recs per Dr. Darrel Gray PGY3
[2018-11-02 16:18] LABS: MEAN CORPUSCULAR HEMOGLOBIN 30.3 pg (25.0-35.0); MEAN CORPUSCULAR HGB CONC 33.7 g/dl (31.0-37.0); MEAN PLATELET VOLUME 9.5 fl (7.0-11.0); RBC 4.62 10^6/uL (3.5-6.1); RED CELL DISTRIBUTION WIDTH 12.9 % (11.5-14.5); WHITE BLOOD COUNT 11.4 10^3/uL (4.5-11.0)
[2018-11-02 16:36] LABS: ALB/GLOB RATIO 1.2 (1.1-1.8); ALBUMIN 4.1 g/dL (3.0-4.8); ALT/SGPT 16 U/L (7-56); AST/SGOT 22 U/L (14-36); BLOOD UREA NITROGEN 7 mg/dL (7-21); CALCIUM 9.5 mg/dL (8.4-10.5); GFR NON-AFRICAN AMERICAN > 60
[2018-11-02] MEDS: Lactobacillus Acidophilus 500 MU Cap PO SCH (17:08)
[2018-11-02] MEDS: Dextrose 5%/0.45% NS 1,000 ML IV SCH (17:09)
[2018-11-03] MEDS: Dextrose 5%/0.45% NS 1,000 ML IV SCH (01:06)
[2018-11-03 07:06] LABS: HEMOGLOBIN 13.9 g/dL (12.0-16.0); MEAN CELL VOLUME 89.3 fl (80.0-105.0); MEAN CORPUSCULAR HEMOGLOBIN 30.2 pg (25.0-35.0); MEAN CORPUSCULAR HGB CONC 33.8 g/dl (31.0-37.0); MEAN PLATELET VOLUME 9.5 fl (7.0-11.0); RBC 4.6 10^6/uL (3.5-6.1); RED CELL DISTRIBUTION WIDTH 12.9 % (11.5-14.5); WHITE BLOOD COUNT 9.5 10^3/uL (4.5-11.0)
[2018-11-03 07:14] LABS: ALB/GLOB RATIO 1.1 (1.1-1.8); ALBUMIN 3.8 g/dL (3.0-4.8); ALT/SGPT 17 U/L (7-56); AST/SGOT 24 U/L (14-36); BLOOD UREA NITROGEN 6 mg/dL (7-21); CALCIUM 9.1 mg/dL (8.4-10.5); GFR NON-AFRICAN AMERICAN > 60
--- NOTE | 2018-11-03 08:17 | CP.PCM.PN ---
Subjective - Date & Time of Evaluation Date of Evaluation: 11/03/18 Time of Evaluation: 07:15 - Subjective Subjective: Itz Bradshaw, PGY-[address] Rojo, covered by Dr. Corado Patient seen and evaluated at bedside. No acute events reported overnight other than continuing episodes of diarrhea. Patient has been eating crackers and has slowly regained her appetite to consume a regular diet. Reports flatus and urination without issue. Objective - Vital Signs/Intake and Output Vital Signs (last 24 hours): Temp Pulse Resp BP Pulse Ox 98.5 F 64 18 141/82 92 L 11/02/18 22:00 11/02/18 22:00 11/02/18 22:00 11/02/18 22:00 11/02/18 22:00 Intake and Output: 11/03/18 11/03/18 06:59 18:59 Intake Total 420 Balance 420 - Medications Medications: Current Medications Acetaminophen (Tylenol 325mg Tab) 650 mg PO Q6H PRN PRN Reason: Fever >100.4 F Last Admin: 11/02/18 21:05 Dose: 650 mg Amlodipine Besylate (Norvasc) 5 mg PO QAM [facility] Last Admin: 11/02/18 09:44 Dose: 5 mg Benzocaine/Menthol (Cepacol Sore Throat) 1 emilie MT Q4H PRN PRN Reason: Sore Throat Last Admin: 11/01/18 09:50 Dose: 1 emilie Dextrose/Sodium Chloride (Dextrose 5%/0.45% Ns 1000 Ml) 1,000 mls @ 120 mls/hr IV .Q8H20M [facility] Last Admin: 11/03/18 01:06 Dose: Not Given Ketorolac Tromethamine (Toradol) 15 mg IVP Q6 PRN PRN Reason: Pain, moderate (4-7) Lactobacillus Acidophilus (Bacid Acidophilus) 1 cap PO BID [facility] Last Admin: 11/02/18 17:08 Dose: 1 cap - Labs Labs: 11/03/18 06:55 11/03/18 06:55 - Additional Findings Additional findings: - Constitutional Appears: Non-toxic, No Acute Distress - Head Exam Head Exam: ATRAUMATIC, NORMOCEPHALIC - Eye Exam Eye Exam: EOMI - ENT Exam ENT Exam: Mucous Membranes Moist - Respiratory Exam Respiratory Exam: NORMAL BREATHING PATTERN - Cardiovascular Exam Cardiovascular Exam: +S1, +S2 - GI/Abdominal Exam GI & Abdominal Exam: Soft. Incisions are well approximated without erythema or discharge. absent: Distended, Guarding, Rigid, Tenderness - Neurological Exam Neurological Exam: Alert, Awake - Psychiatric Exam Psychiatric exam: Normal Affect, Normal Mood - Skin Skin Exam: Dry, Intact Assessment and Plan - Assessment and Plan (Free Text) Assessment: 68 F PMHx HTN and HLD POD #3 s/p lap R hemicolectomy with primary anastamosis for carcinoid tumor. - Encourage ambulation, OOB to chair - Encourage IS use - Continue to monitor bowel function, psyllium began, c. diff studies negative - Persistent diarrhea, cholestyramine started - Tolerating Regular diet, stopped IVF - Morning labs noted Further recs per Dr. Darrel Bradshaw, PGY-1
[2018-11-03] MEDS ORDERED: Psyllium Packet PO SCH (10:00)
[2018-11-03] MEDS: Lactobacillus Acidophilus 500 MU Cap PO SCH ×2 (10:43→18:08)
[2018-11-03] MEDS ORDERED: Cholestyramine 4 gm/Pkt UD PO SCH (14:00)
--- NOTE | 2018-11-04 08:15 | CP.PCM.PN ---
Subjective - Date & Time of Evaluation Date of Evaluation: 11/04/18 Time of Evaluation: 06:50 - Subjective Subjective: Surgery Progress note. Dr. Rojo. Dr. Mak baires. Pt seen and examined at bedside. Still reports diarrhea, however, has had some improved episodes compared to yesterday, now reports diarrhea every 1-1.5 hour. Diarrhea is now more yellow compared to greenish prior. Pain improved and well tolerated. No N/V. States that the abdomen is less distended now. No fevers or chills. Still reports no appetite. No new complaints. Objective - Vital Signs/Intake and Output Vital Signs (last 24 hours): Temp Pulse Resp BP Pulse Ox 97.8 F 67 18 133/79 95 11/03/18 14:00 11/03/18 14:00 11/03/18 14:00 11/03/18 14:00 11/03/18 14:00 Intake and Output: 11/04/18 11/04/18 06:59 18:59 Intake Total 120 Balance 120 - Medications Medications: Current Medications Acetaminophen (Tylenol 325mg Tab) 650 mg PO Q6H PRN PRN Reason: Fever >100.4 F Last Admin: 11/04/18 03:49 Dose: 650 mg Amlodipine Besylate (Norvasc) 5 mg PO QAM [facility] Last Admin: 11/03/18 10:44 Dose: 5 mg Benzocaine/Menthol (Cepacol Sore Throat) 1 emilie MT Q4H PRN PRN Reason: Sore Throat Last Admin: 11/01/18 09:50 Dose: 1 emilie Cholestyramine Resin (Questran) 4 gm PO TID [facility] Ketorolac Tromethamine (Toradol) 15 mg IVP Q6 PRN PRN Reason: Pain, moderate (4-7) Lactobacillus Acidophilus (Bacid Acidophilus) 1 cap PO BID [facility] Last Admin: 11/03/18 18:08 Dose: Not Given - Labs Labs: 11/03/18 06:55 11/03/18 06:55 - Constitutional Appears: Well, Non-toxic, No Acute Distress - Head Exam Head Exam: ATRAUMATIC, NORMAL INSPECTION, NORMOCEPHALIC - Eye Exam Eye Exam: EOMI, Normal appearance. absent: Scleral icterus - ENT Exam ENT Exam: Mucous Membranes Moist - Respiratory Exam Respiratory Exam: NORMAL BREATHING PATTERN. absent: Accessory Muscle Use, Respiratory Distress - Cardiovascular Exam Cardiovascular Exam: RRR. absent: Tachycardia, JVD - GI/Abdominal Exam GI & Abdominal Exam: Soft. absent: Distended, Firm, Guarding, Rebound Additional comments: Mild jeanne-incisional tenderness. Incisions clean, dry and intact with dermabond in place. - Extremities Exam Extremities Exam: Normal Inspection. absent: Calf Tenderness - Neurological Exam Neurological Exam: Alert, Awake, Oriented x3 - Psychiatric Exam Psychiatric exam: Normal Affect, Normal Mood - Skin Skin Exam: Dry, Intact, Normal Color, Warm Assessment and Plan - Assessment and Plan (Free Text) Assessment: 68yo F with HTN, HLD and carcinoid s/p Lap Right hemicolectomy with primary [id number] anastamosis. POD 4. Post-op course with diarrhea. Plan: - f/u GI recs - continue cholestyramine; Will need to titrate down the dose prior to discharge - Will consider dose of loperamide if needed - Octreotide if needed tomorrow if symptoms do not improve - monitor bowel function - Encourage OOBTC and ambulate - Encourage IS use - Continue diet Further recs as per Dr. Darrel Reddy PGY2 surgery
[2018-11-04] MEDS: Lactobacillus Acidophilus 500 MU Cap PO SCH ×2 (09:09→17:04)
[2018-11-04] MEDS: Cholestyramine 4 gm/Pkt UD PO SCH ×3 (09:10→17:04)
--- NOTE | 2018-11-04 12:08 | CP.PCM.PN ---
<Kevin Bazan - Last Filed: 11/04/18 12:09> Subjective - Date & Time of Evaluation Date of Evaluation: 11/04/18 Time of Evaluation: 12:06 - Subjective Subjective: GI: Dr. Barker Pt seen and examined. She states that diarrhea has decreased in frequency to about every 1.5 hrs. She has decreased appetite but is tolerating diet. Objective - Vital Signs/Intake and Output Vital Signs (last 24 hours): Temp Pulse Resp BP Pulse Ox 98.6 F 64 20 141/80 93 L 11/04/18 06:00 11/04/18 06:00 11/04/18 06:00 11/04/18 06:00 11/04/18 06:00 Intake and Output: 11/04/18 11/04/18 06:59 18:59 Intake Total 120 Balance 120 - Medications Medications: Current Medications Acetaminophen (Tylenol 325mg Tab) 650 mg PO Q6H PRN PRN Reason: Fever >100.4 F Last Admin: 11/04/18 03:49 Dose: 650 mg Amlodipine Besylate (Norvasc) 5 mg PO QAM [facility] Last Admin: 11/04/18 09:09 Dose: 5 mg Benzocaine/Menthol (Cepacol Sore Throat) 1 emilie MT Q4H PRN PRN Reason: Sore Throat Last Admin: 11/01/18 09:50 Dose: 1 emilie Cholestyramine Resin (Questran) 4 gm PO TID [facility] Last Admin: 11/04/18 09:10 Dose: 4 gm Ketorolac Tromethamine (Toradol) 15 mg IVP Q6 PRN PRN Reason: Pain, moderate (4-7) Lactobacillus Acidophilus (Bacid Acidophilus) 1 cap PO BID [facility] Last Admin: 11/04/18 09:09 Dose: 1 cap - Labs Labs: 11/03/18 06:55 11/03/18 06:55 - Constitutional Appears: Non-toxic, No Acute Distress - Head Exam Head Exam: ATRAUMATIC, NORMOCEPHALIC - Eye Exam Eye Exam: EOMI - ENT Exam ENT Exam: Mucous Membranes Moist - Neck Exam Neck Exam: Full ROM - Respiratory Exam Respiratory Exam: NORMAL BREATHING PATTERN. absent: Accessory Muscle Use, Respiratory Distress - GI/Abdominal Exam GI & Abdominal Exam: Soft, Tenderness (jeanne-incisional ). absent: Distended, Firm, Guarding, Rigid, Rebound Additional comments: incisions C/D/I - Extremities Exam Extremities Exam: absent: Calf Tenderness, Pedal Edema - Neurological Exam Neurological Exam: Alert, Awake, Oriented x3 - Psychiatric Exam Psychiatric exam: Normal Affect, Normal Mood - Skin Skin Exam: Dry, Intact, Warm Assessment and Plan - Assessment and Plan (Free Text) Assessment: 68F w. HTN and HLD s/p R hemicolectomy POD#4 for carcinoid CA, now w. post-op diarrhea, slowly decreasing in frequency -C. Diff negative -c/w pro biotics, bulking agents, and cholestyramine -will follow -if no further improvement will consider loperamide -d/w attending Hortensia PGY4 <Mikaela Barker V - Last Filed: 11/04/18 22:37> Objective - Vital Signs/Intake and Output Vital Signs (last 24 hours): Temp Pulse Resp BP Pulse Ox 98 F 63 20 123/76 94 L 11/04/18 14:00 11/04/18 14:00 11/04/18 14:00 11/04/18 14:00 11/04/18 14:00 Intake and Output: 11/04/18 11/05/18 18:59 06:59 Intake Total 760 360 Balance 760 360 - Medications Medications: Current Medications Acetaminophen (Tylenol 325mg Tab) 650 mg PO Q6H PRN PRN Reason: Fever >100.4 F Last Admin: 11/04/18 03:49 Dose: 650 mg Amlodipine Besylate (Norvasc) 5 mg PO QAM [facility] Last Admin: 11/04/18 09:09 Dose: 5 mg Benzocaine/Menthol (Cepacol Sore Throat) 1 emilie MT Q4H PRN PRN Reason: Sore Throat Last Admin: 11/01/18 09:50 Dose: 1 emilie Cholestyramine Resin (Questran) 4 gm PO TID [facility] Last Admin: 11/04/18 17:04 Dose: 4 gm Ketorolac Tromethamine (Toradol) 15 mg IVP Q6 PRN PRN Reason: Pain, moderate (4-7) Lactobacillus Acidophilus (Bacid Acidophilus) 1 cap PO BID [facility] Last Admin: 11/04/18 17:04 Dose: 1 cap - Labs Labs: 11/03/18 06:55 11/03/18 06:55 Attending/Attestation - Attestation I have personally seen and examined this patient.: Yes I have fully participated in the care of the patient.: Yes I have reviewed all pertinent clinical information, including history, physical exam and plan: Yes Notes (Text): This is an addendum to GI followup report dictated by the Resident. The patient was seen and evaluated earlier. Medical records, lab studies, imagings were reviewed. Last 24 hours events reviewed. Agreed with the above treatment plan as outlined in Resident 's notes with the addition of the following 11/04/18 22:37
[2018-11-04 17:27] LABS: URINE BILIRUBIN NEGATIVE (NEGATIVE); URINE BLOOD SMALL (NEGATIVE); URINE GLUCOSE (UA) NEGATIVE (NEGATIVE); URINE LEUKOCYTE ESTERASE NEGATIVE Leu/uL (NEGATIVE); URINE PROTEIN NEGATIVE mg/dL (<30 mg/dL); URINE UROBILINOGEN 0.2 E.U./dL (<1 E.U./dL)
[2018-11-04 17:31] LABS: URINE APPEARANCE CLEAR (CLEAR); URINE COLOR YELLOW (YELLOW)
[2018-11-04 17:35] LABS: URINE BACTERIA TRACE /hpf
[2018-11-05 08:04] LABS: BASO # 0.02 K/mm3 (0.0-2.0); BASO % 0.3 % (0.0-3.0); EOS # 0.3 (0.0-0.7); EOS % 4.5 % (1.5-5.0); HEMOGLOBIN 12.7 g/dL (12.0-16.0); LYMPH # 2.1 (1.2-3.4); LYMPH % 29.9 % (22.0-35.0); MEAN CELL VOLUME 87.9 fl (80.0-105.0); MEAN CORPUSCULAR HEMOGLOBIN 29.6 pg (25.0-35.0); MEAN CORPUSCULAR HGB CONC 33.7 g/dl (31.0-37.0); MEAN PLATELET VOLUME 9.7 fl (7.0-11.0); MONO # 0.6 (0.1-0.6); RBC 4.29 10^6/uL (3.5-6.1); WHITE BLOOD COUNT 6.9 10^3/uL (4.5-11.0)
[2018-11-05 08:21] LABS: ALB/GLOB RATIO 1.1 (1.1-1.8); ALBUMIN 3.8 g/dL (3.0-4.8); ALT/SGPT 13 U/L (7-56); AST/SGOT 21 U/L (14-36); BLOOD UREA NITROGEN 13 mg/dL (7-21); CALCIUM 8.9 mg/dL (8.4-10.5); GFR NON-AFRICAN AMERICAN > 60
[2018-11-05 08:33] VITALS: RESP 18
--- NOTE | 2018-11-05 10:33 | CP.PCM.DIS ---
Provider - Provider Date of Admission: 10/31/18 15:30 Attending physician: Jaziel Rojo MD Primary care physician: Seth Carrasquillo MD Consults: 11/03/18 09:56 Gastroenterology Consult Routine Comment: Diarrhea Consulting Provider: Mikaela Barker V Consulting Physician: Mikaela Barker V Reason for Consult: Diarrhea Time Spent in preparation of Discharge (in minutes): 45 Hospital Course - Lab Results Lab Results: Micro Results 11/02/18 10:25 Stool C. difficile Antigen & Toxins A,B - Final Most Recent Lab Values WBC 6.9 10^3/uL (4.5-11.0) D 11/05/18 07:20 RBC 4.29 10^6/uL (3.5-6.1) 11/05/18 07:20 Hgb 12.7 g/dL (12.0-16.0) 11/05/18 07:20 Hct 37.7 % (36.0-48.0) 11/05/18 07:20 MCV 87.9 fl (80.0-105.0) 11/05/18 07:20 MCH 29.6 pg (25.0-35.0) 11/05/18 07:20 MCHC 33.7 g/dl (31.0-37.0) 11/05/18 07:20 RDW 13.0 % (11.5-14.5) 11/05/18 07:20 Plt Count 263 10^3/uL (120.0-450.0) 11/05/18 07:20 MPV 9.7 fl (7.0-11.0) 11/05/18 07:20 Neut % (Auto) 57.3 % (50.0-68.0) 11/05/18 07:20 Lymph % (Auto) 29.9 % (22.0-35.0) 11/05/18 07:20 [place] % (Auto) 8.0 % (1.0-6.0) H 11/05/18 07:20 Eos % (Auto) 4.5 % (1.5-5.0) 11/05/18 07:20 Baso % (Auto) 0.3 % (0.0-3.0) 11/05/18 07:20 Lymph # (Auto) 2.1 (1.2-3.4) 11/05/18 07:20 [place] # (Auto) 0.6 (0.1-0.6) 11/05/18 07:20 Eos # (Auto) 0.3 (0.0-0.7) 11/05/18 07:20 Baso # (Auto) 0.02 K/mm3 (0.0-2.0) 11/05/18 07:20 Absolute Neuts (auto) 3.96 (1.4-6.5) 11/05/18 07:20 Sodium 140 mmol/L (132-148) 11/05/18 07:20 Potassium 3.5 mmol/L (3.6-5.0) L 11/05/18 07:20 Chloride 111 mmol/L (98-107) H 11/05/18 07:20 Carbon Dioxide 19 mmol/L (21-33) L 11/05/18 07:20 Anion Gap 13 (10-20) 11/05/18 07:20 BUN 13 mg/dL (7-21) 11/05/18 07:20 Creatinine 0.7 mg/dl (0.7-1.2) 11/05/18 07:20 Est GFR ( Amer) > 60 11/05/18 07:20 Est GFR (Non-Af Amer) > 60 11/05/18 07:20 Random Glucose 89 mg/dL (70-110) 11/05/18 07:20 Calcium 8.9 mg/dL (8.4-10.5) 11/05/18 07:20 Total Bilirubin 0.7 mg/dL (0.2-1.3) 11/05/18 07:20 AST 21 U/L (14-36) 11/05/18 07:20 ALT 13 U/L (7-56) 11/05/18 07:20 Alkaline Phosphatase 71 U/L (38-126) 11/05/18 07:20 Total Protein 7.1 g/dL (5.8-8.3) 11/05/18 07:20 Albumin 3.8 g/dL (3.0-4.8) 11/05/18 07:20 Globulin 3.3 gm/dL 11/05/18 07:20 Albumin/Globulin Ratio 1.1 (1.1-1.8) 11/05/18 07:20 Urine Color Yellow (YELLOW) 11/04/18 14:40 Urine Appearance Clear (CLEAR) 11/04/18 14:40 Urine pH 6.0 (4.7-8.0) 11/04/18 14:40 Ur Specific [place] >= 1.030 (1.005-1.035) 11/04/18 14:40 Urine Protein Negative mg/dL (<30 mg/dL) 11/04/18 14:40 Urine Glucose (UA) Negative mg/dL (NEGATIVE) 11/04/18 14:40 Urine Ketones Negative mg/dL (NEGATIVE) 11/04/18 14:40 Urine Blood Small (NEGATIVE) H 11/04/18 14:40 Urine Nitrate Negative (NEGATIVE) 11/04/18 14:40 Urine Bilirubin Negative (NEGATIVE) 11/04/18 14:40 Urine Urobilinogen 0.2 E.U./dL (<1 E.U./dL) 11/04/18 14:40 Ur Leukocyte Esterase Negative [place]/uL (NEGATIVE) 11/04/18 14:40 Urine RBC 10 - 15 /hpf (0-2) H 11/04/18 14:40 Urine WBC 2 - 5 /hpf (0-6) 11/04/18 14:40 Ur Epithelial Cells 6 - 8 /hpf (0-5) H 11/04/18 14:40 Urine Bacteria Trace /hpf (NONE) 11/04/18 14:40 Blood Type A POSITIVE 10/31/18 10:30 Antibody Screen Negative 10/31/18 10:30 BBK History Checked Patient has bt 10/31/18 10:30 - Hospital Course Hospital Course: 68yo F with HTN and HLD who was brought into the hospital via same day surgery for right hemicolectomy for carcinoid. Post-operatively, patient started to have diarrhea and required an extended stay for recovery. Patient was started on Cholestyramine and her symptoms improved. Patient's incisions clean, dry and intact. GI consult was obtained who recommeded titrating down the dose of the cholestyramine. Patient was cleared for discharge home with prescriptions for Cholestyramine, Loperamide prn, and probiotic. Discharge instructions had with patient who understands and agrees with plan. Patient agrees to follow up with Dr. Rojo in office. Discharge Exam - Head Exam Head Exam: ATRAUMATIC, NORMAL INSPECTION, NORMOCEPHALIC - Eye Exam Eye Exam: EOMI, Normal appearance. absent: Scleral icterus - ENT Exam ENT Exam: Mucous Membranes Moist - Respiratory Exam Respiratory Exam: NORMAL BREATHING PATTERN, UNREMARKABLE. absent: Accessory Muscle Use, Respiratory Distress - Cardiovascular Exam Cardiovascular Exam: absent: RRR - GI/Abdominal Exam GI & Abdominal Exam: Soft. absent: Distended, Guarding, Rebound, Tenderness - Extremities Exam Extremities exam: normal inspection - Neurological Exam Neurological exam: Alert, Oriented x3 - Psychiatric Exam Psychiatric exam: Normal Affect, Normal Mood - Skin Skin Exam: Dry, Intact, Normal Color, Warm Discharge Plan - Discharge Medications Prescriptions: Cholestyramine [Questran] 4 gm PO DAILY #10 packet Lactobacillus Acidophilus [Bacid Acidophilus] 1 cap PO BID #14 cap Loperamide [Loperamide HCl] 2 mg PO Q6 PRN #10 cap PRN Reason: Diarrhea - Follow Up Plan Condition: GOOD Disposition: HOME/ ROUTINE Additional Instructions: 1. Resume home meds 2. Cholestyramine once daily 3. Use imodium as directed only if needed 4. Follow up with Dr. Rojo in 7-10 days. Call for appointment. 5. No heavy lifting for 4-6 weeks 6. Okay to shower. Do not soak in pools or tubs. 7. Return to the ED with any concerning symptoms Referrals: Seth Carrasquillo MD [Primary Care Provider] - Jaziel Rojo MD [Staff Provider] - Mikaela Barker MD [Medical Doctor] -
[2018-11-05] MEDS: Lactobacillus Acidophilus 500 MU Cap PO SCH (10:45)
[2018-11-05] MEDS: Cholestyramine 4 gm/Pkt UD PO SCH (10:45)
--- NOTE | 2018-11-05 11:56 | CP.PCM.PN ---
Subjective - Date & Time of Evaluation Date of Evaluation: 11/05/18 Time of Evaluation: 11:53 - Subjective Subjective: Gastroenterology Fellow/PGY6 Progress Note Patient feels well. Tolerating regular diet. Notes improving diarrhea frequency to five times yesterday from prior note of every twenty minutes. A 12-point review of systems negative except for as above. Objective - Vital Signs/Intake and Output Vital Signs (last 24 hours): Temp Pulse Resp BP Pulse Ox 98.2 F 82 18 132/80 94 L 11/05/18 08:32 11/05/18 10:45 11/05/18 08:32 11/05/18 10:45 11/05/18 08:32 Intake and Output: 11/05/18 11/05/18 06:59 18:59 Intake Total 360 Balance 360 - Medications Medications: Current Medications Acetaminophen (Tylenol 325mg Tab) 650 mg PO Q6H PRN PRN Reason: Fever >100.4 F Last Admin: 11/04/18 03:49 Dose: 650 mg Amlodipine Besylate (Norvasc) 5 mg PO QAM [facility] Last Admin: 11/05/18 10:45 Dose: 5 mg Benzocaine/Menthol (Cepacol Sore Throat) 1 emilie MT Q4H PRN PRN Reason: Sore Throat Last Admin: 11/01/18 09:50 Dose: 1 emilie Cholestyramine Resin (Questran) 4 gm PO TID [facility] Last Admin: 11/05/18 10:45 Dose: 4 gm Ketorolac Tromethamine (Toradol) 15 mg IVP Q6 PRN PRN Reason: Pain, moderate (4-7) Lactobacillus Acidophilus (Bacid Acidophilus) 1 cap PO BID [facility] Last Admin: 11/05/18 10:45 Dose: 1 cap - Labs Labs: 11/05/18 07:20 11/05/18 07:20 - Constitutional Appears: Non-toxic, No Acute Distress - Head Exam Head Exam: ATRAUMATIC, NORMOCEPHALIC - Eye Exam Eye Exam: EOMI, PERRL. absent: Scleral icterus Pupil Exam: PERRL. absent: Miosis, Mydriatic - ENT Exam ENT Exam: Mucous Membranes Moist, Normal Oropharynx - Neck Exam Neck Exam: Full ROM, Normal Inspection - Respiratory Exam Respiratory Exam: Clear to Ausculation Bilateral. absent: Rales, Rhonchi, Wheezes - Cardiovascular Exam Cardiovascular Exam: RRR, +S1, +S2. absent: Gallop, Rubs - GI/Abdominal Exam GI & Abdominal Exam: Soft, Normal Bowel Sounds. absent: Distended, Firm, Guarding, Rigid, Tenderness, Organomegaly, Rebound Additional comments: umbilical, LUQ and LLQ surgical incision sites C/D/I - Extremities Exam Extremities Exam: Normal Inspection. absent: Pedal Edema - Neurological Exam Neurological Exam: Alert, Awake - Psychiatric Exam Psychiatric exam: Normal Affect, Normal Mood - Skin Skin Exam: Dry, Intact, Normal Color, Warm Assessment and Plan - Assessment and Plan (Free Text) Assessment: 68 year old female with PMH of HTN and HLD presenting for surgical intervention of previously diagnosed terminal ileum carcinoid tumor POD5 (11/01/18) right hemicolectomy complicated by post-operative diarrhea. Plan: -improving diarrhea -continue cholestyramine powder -patient counselled on titration of powder to stool consistency -on Probiotic -tolerating regular diet -counselled on outpatient follow up with Dr. Barker on discharge Case discussed with Dr. Barker
[2018-11-05 14:37] VITALS: BP 127/74; PULSE 59; TEMP 98.1; O2SAT 93
== END 2018-11-05 15:34 | disposition home or self-care (01) | DRG 330 ==
LOC: SDS 09:27 → ERH 15:30 → 5RNO 17:02
PROVIDERS: ADMIT General Practice; ATTEND General Practice
PROC: 0DTF4ZZ Resection of Right Large Intestine, Percutaneous Endoscopic Approach (ICD-10-PCS; principal; 2018-10-31 11:30)
DX: C7A.012 Malignant carcinoid tumor of the ileum (principal); C77.2 Secondary and unspecified malignant neoplasm of intra-abdominal lymph nodes; E78.5 Hyperlipidemia, unspecified; I10 Essential (primary) hypertension